=== PATIENT | female | born 1990 | race African-American/Black ===

== ENCOUNTER 2019-11-23 14:21 | Outpatient (CLI) | payer OTHER, SELFPAY ==
--- NOTE | ~2019-11-23 | US_ITS ---
EXAMINATION: US OB <= 14 weeks fetus DATE: 11/23/2019 15:29 INDICATION: First trimester dating. TECHNIQUE: Real-time pelvic transabdominal and transvaginal ultrasound was performed. COMPARISON: None. FINDINGS: The uterus measures 10.4 x 7.4 x 7.5 cm. There is an intrauterine gestational sac. There i s a 3.5 x 1.6 x 1 0.7 cm hypoechoic area adjacent to the gestational sac. A yolk sac is identified. F etal heart motion is identified measuring 163 beats per minute (bpm) by M-mode Doppler. 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 The left ovary is not visualized however no left adnexal abnormality is seen. The right ovary measure s 3.2 x 1.8 x 1.7 cm. There is normal vascular flow in the right ovary. There is no free fluid in the pelvis. IMPRESSION: 1. Live intrauterine with an estimated gestational age of 8 weeks and 5 day(s) (+/-) 5 day( s) and an estimated delivery date of 06/29/2020. 2. Small subchorionic hemorrhage. 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 IMPRESSION: 1. Live intrauterine with an estimated gestational age of 8 weeks and 5 day(s) (+/-) 5 day(s) and an estimated delivery date of 06/29/2020. 2. Small subchorionic hemorrhage.
== END 2019-11-23 14:22 | disposition home or self-care (01) ==
LOC: ANHIMG 14:24
PROVIDERS: Visit Provider Nurse Practitioner
DX: Z36.87 Encounter for antenatal screening for uncertain dates (principal); O26.859 Spotting complicating pregnancy, unspecified trimester; Z3A.08 8 weeks gestation of pregnancy
CPT/HCPCS: 76801

== ENCOUNTER 2019-12-05 15:32 | Outpatient (CLI) | payer OTHER, SELFPAY ==
--- NOTE | ~2019-12-05 | US_ITS ---
EXAMINATION: US OB <= 14 weeks fetus DATE: 12/05/2019 16:10 INDICATION: Subchorionic hematoma, first trimester TECHNIQUE: Real-time pelvic transabdominal and transvaginal ultrasound was performed. COMPARISON: 11/23/2019 FINDINGS: The uterus measures 15.1 x 7.4 x 8.9 cm. There is an intrauterine gestational sac. There i s a 1.8 x 0.7 x 0.4 cm hypoechoic area adjacent to the gestational sac which is decreased in size sin ce the comparison examination. A yolk sac is identified. heart motion is identified measuring 1 65 beats per minute (bpm) by M-mode Doppler. The crown rump length measures 3.8 cm , which betty elates with an estimated gestational age of 10 weeks and 5 day(s) (+/-) 7 day(s). The right ovary measures 2.9 x 1.5 x 1.4 cm. The left ovary measures 3.1 x 1.7 x 1.8 cm. There is nor mal vascular flow in the ovaries. There is no free fluid in the pelvis. IMPRESSION: 1. Live intrauterine with an estimated gestational age of 10 weeks and 5 day(s) (+/-) 7 day (s) and an estimated delivery date of 06/27/2020. 2. Small subchorionic hemorrhage with decrease in size. 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 IMPRESSION: 1. Live intrauterine with an estimated gestational age of 10 weeks an d 5 day(s) (+/-) 7 day(s) and an estimated delivery date of 06/27/2020. 2. Small subchorionic hemorrhage with decrease in size.
== END 2019-12-05 15:33 | disposition home or self-care (01) ==
PROVIDERS: Visit Provider Obstetrics & Gynecology Gynecology
DX: O36.8910 Maternal care for other specified fetal problems, first trimester, not applicable or unspecified (principal); Z3A.10 10 weeks gestation of pregnancy
CPT/HCPCS: 76801

== ENCOUNTER 2020-01-02 15:55 | Outpatient (CLI) | payer OTHER, SELFPAY ==
--- NOTE | ~2020-01-02 | US_ITS ---
EXAMINATION: US OB limited DATE: 01/02/2020 16:32 INDICATION: Subchorionic hematoma during first trimester of . TECHNIQUE: Real-time ultrasound of the pelvis was performed. The interpreting radiologist was not pre sent for the study. COMPARISON: 12/05/2019 FINDINGS: There is a single living fetus in variable presentation. The placenta is anterior. No evident subcho rionic hematoma. heart rate is 145 beats per minute (bpm). The amniotic fluid is subjectively n ormal. IMPRESSION: 1. Single living fetus in variable presentation with heart rate of 145 bpm. 2. Anterior placenta with no evident subchorionic hematoma. 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 IMPRESSION: 1. Single living fetus in variable presentation with heart rate of 145 b pm. 2. Anterior placenta with no evident subchorionic hematoma.
== END 2020-01-02 15:56 | disposition home or self-care (01) ==
PROVIDERS: Visit Provider Obstetrics & Gynecology Gynecology
DX: O36.8920 Maternal care for other specified fetal problems, second trimester, not applicable or unspecified (principal); Z3A.00 Weeks of gestation of pregnancy not specified
CPT/HCPCS: 76815

== ENCOUNTER 2020-01-31 14:39 | Outpatient (CLI) | payer OTHER, SELFPAY ==
--- NOTE | ~2020-01-31 | US_ITS ---
EXAMINATION: US OB /maternal detail DATE: 01/31/2020 15:48 INDICATION: Second trimester anatomic survey TECHNIQUE: Real-time ultrasound of the pelvis was performed. COMPARISON: None. FINDINGS: There is a single living fetus in breech presentation. The placenta is anterior and 6.1 cm from the i nternal cervical os. There is a 4.8 x 4.5 cm hypoechoic area of the placenta at the myometrium of unc lear origin. heart rate is 145 beats per minute (bpm). cardiac activity and moveme nt are noted. The amniotic fluid index is subjectively normal. The following anatomy was identified as normal: 4 chamber heart 3 vessel cord cord insertion kidneys urinary bladder stomach spine diaphragm ventricles cisterna magna cerebellum The following biometric data were obtained: Biparietal diameter (BPD): 4.4 cm; head circumference (HC): 16.4 cm; abdominal circumference (AC): 12 .4 cm; femur length (FL): 2.6 cm. The head circumference to abdominal circumference ratio is greater than two standard deviations above the mean. These measurements are otherwise concordant. Estimated weight is 225 g +/- 33 g, which correlates with the 17th percentile when 06/28/2020 i s used as estimated date of delivery. As single measurements, these parameters are each equal to the following estimated gestational ages w ith ranges of +/- 2 standard deviations: BPD: 19 weeks 3 days +/- 1 weeks 5 days. HC: 19 weeks 1 days +/- 1 weeks 3 days. AC: 18 weeks 0 days +/- 2 weeks 0 days. FL: 18 weeks 0 days +/- 1 weeks 3 days. estimated gestational age based solely on measurements from this exam is 18 weeks 5 days +/- 1 weeks 2 days. IMPRESSION: 1. Single living fetus in breech presentation. 2. Estimated weight is 225 g +/- 33 g, which correlates with the 17th percentile when 0 is used as estimated date of delivery. 3. Head circumference to abdominal circumference ratio greater than two standard deviations above the mean. 4. Hypoechoic area posterior to the placenta of unclear significance, possibly reflecting a contracti on however would recommend clinical follow-up and follow-up ultrasound. 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 IMPRESSION: 1. Single living fetus in breech presentation. 2. Estimated weight is 225 g +/- 33 g, which correlates with the 17th per centile when 06/28/2020 is used as estimated date of delivery. 3. Head circumference to abdominal circumference ratio greater than two standar d deviations above the mean. 4. Hypoechoic area posterior to the placenta of unclear significance, possibly reflecting a contraction however would recommend clinical follow-up and follow- up ultrasound.
== END 2020-01-31 14:40 | disposition home or self-care (01) ==
PROVIDERS: Visit Provider Obstetrics & Gynecology Gynecology
DX: Z36.9 Encounter for antenatal screening, unspecified (principal); Z3A.00 Weeks of gestation of pregnancy not specified
CPT/HCPCS: 76805

== ENCOUNTER 2020-04-25 11:24 | Outpatient (CLI) | payer OTHER, SELFPAY ==
--- NOTE | ~2020-04-25 | US_ITS ---
EXAMINATION: US OB follow up DATE: 04/25/2020 11:59 INDICATION: Size greater than dates during third trimester TECHNIQUE: Real-time ultrasound of the pelvis was performed. The interpreting radiologist was not pre sent for the study. COMPARISON: 01/31/2020 FINDINGS: There is a single living fetus in vertex presentation. The placenta is anterior and 4.2 cm from the internal cervical os. cardiac activity and movement are noted. heart rate is 137 beats per minute (bpm). The amniotic fluid index is 19 cm which is normal. The previously desc ribed hypoechoic area posterior to the placenta is not identified on the current examination. The following biometric data were obtained: Biparietal diameter (BPD): 8.1 cm; head circumference (HC): 29.8 cm; abdominal circumference (AC): 28 .4 cm; femur length (FL): 5.8 cm. These measurements are concordant. Estimated weight is 1873 g +/- 280 g, which correlates with the 75th percentile when 06/28/2020 is used as estimated date of delivery. As single measurements, these parameters are each equal to the following estimated gestational ages w ith ranges of +/- 2 standard deviations: BPD: 32 weeks 6 days ( 29 weeks 5 days - 35 weeks 6 days). HC: 33 weeks 0 days ( 30 weeks 0 days - 36 weeks 0 days). AC: 32 weeks 4 days ( 29 weeks 4 days - 35 weeks 3 days). FL: 30 weeks 3 days ( 27 weeks 3 days - 33 weeks 3 days). estimated gestational age based solely on measurements from this exam is 32 weeks 2 days +/- 2 weeks 2 days. IMPRESSION: 1. Single living fetus in vertex presentation. 2. Normal amniotic fluid index. 3. Estimated weight is 1873 g +/- 280 g, which correlates with the 75th percentile when 020 is used as estimated date of delivery. 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 IMPRESSION: 1. Single living fetus in vertex presentation. 2. Normal amniotic fluid index. 3. Estimated weight is 1873 g +/- 280 g, which correlates with the 75th p ercentile when 06/28/2020 is used as estimated date of delivery.
== END 2020-04-25 11:25 ==
PROVIDERS: Visit Provider Nurse Practitioner
DX: O36.63X0 Maternal care for excessive fetal growth, third trimester, not applicable or unspecified (principal); Z3A.00 Weeks of gestation of pregnancy not specified
CPT/HCPCS: 76816

== ENCOUNTER 2020-05-12 13:50 | Outpatient (CLI) | payer OTHER, SELFPAY ==
--- NOTE | ~2020-05-12 | US_ITS ---
EXAMINATION: US OB follow up DATE: 05/12/2020 14:14 INDICATION: Size greater than dates. Third trimester. TECHNIQUE: Real-time ultrasound of the pelvis was performed. COMPARISON: Ultrasound 04/25/2020, 11/23/2019 FINDINGS: There is a single living fetus in breech presentation. The placenta is anterior, at least 5.0 cm fro m the cervix. heart rate is 133 beats per minute (bpm). The amniotic fluid index is 12.4 cm, wh ich is normal. The following biometric data were obtained: Biparietal diameter (BPD): 8.7 cm; head circumference (HC): 33.0 cm; abdominal circumference (AC): 30 .7 cm; femur length (FL): 6.0 cm. These measurements are discordant with low FL/BPD and FL/AC. Estimated weight is 2345 g +/- 352 g, which correlates with 67th percentile when 06/28/20 is us ed as estimated date of delivery. As single measurements, these parameters are each equal to the following estimated gestational ages w ith ranges of +/- 2 standard deviations: BPD: 35 weeks 1 days (32 weeks 1 days - 38 weeks 2 days). HC: 37 weeks 4 days (34 weeks 6 days - 40 weeks 2 days). AC: 34 weeks 4 days (31 weeks 5 days - 37 weeks 4 days). FL: 31 weeks 3 days (28 weeks 3 days - 34 weeks 3 days). estimated gestational age based solely on measurements from this exam is 34 weeks 5 days +/- 2 weeks 3 days. IMPRESSION: 1. Single living fetus in breech presentation. 2. Estimated weight is 2345 g +/- 352 g, which correlates with 67th percentile when 06/28/20 i s used as estimated date of delivery. Note that the estimated date of delivery based on the first ult rasound from 11/23/2019 would be 06/29/2020. 3. Discordant biometrics with low FL/BPD and FL/AC ratios. 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 Single living fetus in breech presentation. 2. Estimated weight is 2345 g +/- 352 g, which correlates with 67th perc entile when 06/28/20 is used as estimated date of delivery. Note that the estim ated date of delivery based on the first ultrasound from 11/23/2019 would be . 3. Discordant biometrics with low FL/BPD and FL/AC ratios.
== END 2020-05-12 13:51 ==
PROVIDERS: Visit Provider Obstetrics & Gynecology
DX: O36.63X0 Maternal care for excessive fetal growth, third trimester, not applicable or unspecified (principal); Z3A.34 34 weeks gestation of pregnancy
CPT/HCPCS: 76816

== ENCOUNTER 2020-06-22 15:54 | Inpatient (IN) | payer OTHER, SELFPAY ==
[2020-06-22] VITALS (14 sets, daily range): BP systolic 89–140; BP diastolic 49–85; PULSE 87–121; TEMP 36.6–37; BMI 36.5
--- NOTE | 2020-06-22 15:54 | LDADM ---
This patient, Zakiya Paez, was admitted to Labor/Delivery/Recovery 108 on 06/22/20 at 15:54. Plans for labor, pain management and were discussed with patient. Patient/family oriented to hospital policies and general routines including ID bracelet, bed and alarms, visiting hours, pain management, procedures, bathroom and other care routines, personal items, smoking policy, room service/diet and guest tray routines, infant security routines, and visiting hours. Patient/Family are encouraged to report perceived risks to care and to ask questions if they do not understand what they are told or what they should do. See OBIX for further documentation.
[2020-06-22 16:26] LABS: Basophils Percent Auto 0.3 % (0.2-1.2); Eosinophils Percent Auto 0.4 % (0-4.4); Hematocrit 33.8 % (37.0-47.0); Hemoglobin 11.6 g/dL (12.0-15.0); Immature Granulocyte Absolute 0.04 K/mm3 (0.00-0.031); Immature Granulocyte Percent A 0.6 % (0-0.5); Lymphocytes Absolute Auto 1.35 K/mm3 (0.9-3.2); Lymphocytes Percent Auto 19.3 % (18.3-44.2); Mean Corpuscular HGB Conc 34.3 g/dl (32-36); Mean Corpuscular Hemoglobin 32.4 pg (26-34); Mean Corpuscular Volume 94.4 fl (80-100); Mean Platelet Volume 11.4 fl (7.4-10.4); Monocytes Absolute Auto 0.3 K/mm3 (0.1-0.6); Monocytes Percent Auto 4.4 % (2.6-8.5); Neutrophils Absolute Auto 5.2 K/mm3 (1.3-6.7); Nucleated Red Blood Cells Perc 0.3 % (0.0-0.2); Platelet Count Result 166 k/mm3 (150-375); Red Blood Count 3.58 M/mm3 (4.2-5.4); Red Cell Distribution Width 14.3 % (11.5-14.5)
[2020-06-22] MEDS: DINOPROSTONE 10 MG VAG INSERT VAGINAL (16:35)
--- NOTE | 2020-06-22 17:46 | WPDANESEPP ---
Anes - Eval Pre Procedure Procedure: Labor epidural Date/Time: 06/22/20 17:46 Surgeon: Braydon Preop Diagnosis: abd pain with contractions Pre Op Diagnosis: IOL Patient Data Age: 30 Gender: F Height: 5 ft 3 in Weight: 93.5 kg Last Vital Signs Temp 97.9 F 06/22/20 16:15 Pulse 103 H 06/22/20 17:45 BP 96/53 L 06/22/20 17:45 Allergies Allergy/AdvReac Type Severity Reaction Status Date / Time No Known Allergies Allergy Mild Verified 06/22/20 16:21 Home Medications Medication Instructions Recorded Confirmed Type PNV cmb#95-ferrous fumarate-FA 1 tablet PO DAILY 05/29/20 06/22/20 History [] aspirin 81 mg PO DAILY 05/29/20 06/22/20 History Laboratory Tests 06/22/20 06/22/20 16:18 16:18 WBC 7.0 K/mm3 K/mm3 (4.5-10.0) RBC 3.58 M/mm3 L M/mm3 (4.2-5.4) Hgb 11.6 g/dL L g/dL (12.0-15.0) Hct 33.8 % L % (37.0-47.0) MCV 94.4 fl fl (80-100) MCH 32.4 pg pg (26-34) MCHC 34.3 g/dl g/dl (32-36) RDW 14.3 % % (11.5-14.5) Plt Count 166 k/mm3 k/mm3 (150-375) MPV 11.4 fl H fl (7.4-10.4) Immature Gran % (Auto) 0.6 % H % (0-0.5) Neut % (Auto) 75.0 % H % (45.5-73.1) Lymph % (Auto) 19.3 % % (18.3-44.2) Hanson % (Auto) 4.4 % % (2.6-8.5) Eos % (Auto) 0.4 % % (0-4.4) Baso % (Auto) 0.3 % % (0.2-1.2) Lymph # (Auto) 1.35 K/mm3 K/mm3 (0.9-3.2) Hanson # (Auto) 0.3 K/mm3 K/mm3 (0.1-0.6) Eos # (Auto) 0.0 K/mm3 K/mm3 (0-0.3) Baso # (Auto) 0.0 K/mm3 K/mm3 (0.0-0.1) Abs Immat Gran (auto) 0.04 K/mm3 H K/mm3 (0.00-0.031) Absolute Neuts (auto) 5.2 K/mm3 K/mm3 (1.3-6.7) Absolute Nucleated RBC 0.0 K/mm3 K/mm3 (0.0-0.012) Nucleated RBC % 0.3 % H % (0.0-0.2) RPR Pending Patient hx anesthesia problems: none Family hx anesthesia problems: none PMFSH Past Medical History Medical History (Updated 06/22/20 @ 17:47 by Robert Gavin CRNA) Overweight or obesity and not yet delivered Family History Family History (Updated 05/29/20 @ 14:31 by Josephine Watts RN) Other No pertinent family history Social History Social History Smoking status: Never smoker Substance use: never Gender identity (if verbalized by the patient): Female Spiritual care concerns: No Exam Day of Procedure 06/22/20 17:46 Patient weight: overweight Neurological: alert and oriented
[2020-06-23] VITALS (107 sets, daily range): BP systolic 86–132; BP diastolic 39–86; PULSE 41–111; TEMP 36.6–37.6; O2SAT 80–99
[2020-06-23] MEDS: OXYTOCIN 30 UNITS/NS 500 ML 30 UNITS/500 ML BAG IV CONT (05:32)
[2020-06-23] MEDS: LACTATED RINGERS 1,000 ML 125 ML IV CONT ×3 (05:32→22:13)
[2020-06-23 12:07] LABS: Rapid Plasma Reagin Non-Reactive (NonReactive)
--- NOTE | 2020-06-23 13:06 | P.HP_ITS ---
Obstetrics - Admit Note Admission Note: Arom clear fluid record reviewed. No pertinent additions to the history and/or any subsequent changes in the physical findings that are not consistent with the expected course of the were found. Additions to the history and/or subsequent changes in the physical findings alonso hatch. None.
[2020-06-23] MEDS: ONDANSETRON INJ 4 MG/2 ML VIAL IV PUSH (20:41)
[2020-06-24] VITALS (79 sets, daily range): BP systolic 92–126; BP diastolic 36–81; PULSE 82–142; RESP 18; TEMP 36.3–37.6; O2SAT 95–100
[2020-06-24] MEDS: OXYTOCIN 30 UNITS/NS 500 ML 30 UNITS/500 ML BAG 32 UNITS IV CONT (06:17)
[2020-06-24] MEDS: AMPICILLIN 2 GM/NS 100 ML 2 GM/100 ML BAG IVPB (07:00)
[2020-06-24] MEDS: OXYTOCIN 30 UNITS/NS 500 ML 30 UNITS/500 ML BAG 125 UNITS IV CONT (08:54)
[2020-06-24] MEDS: WITCH HAZEL 40 PADS 1 PAD TOPICAL (10:56)
[2020-06-24] MEDS: BENZOCAINE 20% AER SPR (*SP) 56 GM CAN 1 SPRAY TOPICAL (10:56)
--- NOTE | 2020-06-24 11:05 | PC.NURSE ---
Patient transferred to post room # 288 via wheelchair. Support person present. Oriented to unit, room, information board, rooming in, admission packet and security measures. Patient verbalizes understanding.
[2020-06-24] MEDS: IBUPROFEN 600 MG TABLET PO (14:09)
--- NOTE | 2020-06-24 17:21 | PC.NURSE ---
I called anesthesia to verify when the patient had to be NPO before her surgery on 06/25 at 1530. Anesthesia states no food after 7am and clear liquids up to 4 hours before surgery. I discussed with patient and she verbalized understanding.
[2020-06-25] VITALS (12 sets, daily range): BP systolic 101–124; BP diastolic 52–80; PULSE 77–106; RESP 12–21; TEMP 36.2–36.9; O2SAT 95–100
[2020-06-25] MEDS: IBUPROFEN 600 MG TABLET PO ×3 (04:12→19:26)
[2020-06-25 05:35] LABS: Hematocrit 31.2 % (37.0-47.0); Hemoglobin 10.5 g/dL (12.0-15.0)
--- NOTE | 2020-06-25 07:09 | PC.NURSE ---
Patient NPO as of 7am this morning. She states she ate a light breakfast around 6am
--- NOTE | 2020-06-25 10:15 | PC.NURSE ---
Patient taken to pre-op per stretcher. SBAR sent on the chart along with consents.
--- NOTE | 2020-06-25 10:15 | PM.IMHP ---
H&P: HPI History of Present Illness Date/Time: 06/25/20 10:15 Cheif Complaint: desires sterilizaition Narrative: Zakiya Paez is a 30 year old female s/p desires permanent sterilization. Review of Systems Review of Systems: All systems reviewed & are unremarkable except as noted in HPI and below PMFSH Past Medical History Medical History Overweight or obesity and not yet delivered Family History Family History Other No pertinent family history Social History Social History Smoking status: Never smoker Substance use: never Gender identity (if verbalized by the patient): Female Spiritual care concerns: No Meds Home Medications and Allergies Home Medications Medication Instructions Recorded Confirmed Type PNV cmb#95-ferrous fumarate-FA 1 tablet PO DAILY 05/29/20 06/22/20 History [] aspirin 81 mg PO DAILY 05/29/20 06/22/20 History Allergies Allergy/AdvReac Type Severity Reaction Status Date / Time No Known Allergies Allergy Mild Verified 06/22/20 16:21 Vital Signs Vital Signs - 24 hr 06/24/20 10:30 06/24/20 11:05 06/24/20 19:30 Temperature 36.9 C 36.3 C L Pulse Rate 105 H 109 H 82 Respiratory Rate 18 18 Blood Pressure 114/56 L 103/53 L 113/68 Pulse Oximetry 95 97 Exam Resp: Effort & Inspection: normal respiratory effort GI: Other: Uterus at umbilicus : Bimanual exam- vagina & uterus: normal palpation, normal palpation and enlarged H&P: Results Labs Labs: Short CBC 06/25/20 Range/Units 04:08 Hgb 10.5 L (12.0-15.0) g/dL Hct 31.2 L (37.0-47.0) % Assessment and Plan Assessment and plan (1) Request for sterilization: Code(s): Z30.2 - Encounter for sterilization Status: Acute Assessment and Plan: Scheduled for a post tubal ligation risk and benefits reviewed with patient in detail.
--- NOTE | 2020-06-25 10:19 | WPDANESEPPF ---
Anes - Initial Pre Proc Eval Procedure: Operation Date: 06/25/20 15:30 Proposed Procedures p Post- Tubal Ligation - Pernell Bryson MD Date/Time: 06/25/20 10:19 Surgeon: Dariela Anderson MD Pre Op Diagnosis: IOL Patient Data Age: 30 Gender: F Height: 1.6 m Weight: 93.5 kg Last Vital Signs Temp 36.3 C L 06/24/20 19:30 Pulse 82 06/24/20 19:30 Resp 18 06/24/20 19:30 BP 113/68 06/24/20 19:30 Pulse Ox 97 06/24/20 19:30 Allergies Allergy/AdvReac Type Severity Reaction Status Date / Time No Known Allergies Allergy Mild Verified 06/22/20 16:21 Home Medications Medication Instructions Recorded Confirmed Type PNV cmb#95-ferrous fumarate-FA 1 tablet PO DAILY 05/29/20 06/22/20 History [] aspirin 81 mg PO DAILY 05/29/20 06/22/20 History Laboratory Tests 06/25/20 04:08 Hgb 10.5 g/dL L g/dL (12.0-15.0) Hct 31.2 % L % (37.0-47.0) Patient hx anesthesia problems: none Family hx anesthesia problems: none PMFSH Past Medical History Medical History (Updated 06/25/20 @ 10:20 by Pernell Bryson MD) Overweight or obesity and not yet delivered Request for sterilization Family History Family History Other No pertinent family history Social History Social History Smoking status: Never smoker Substance use: never Gender identity (if verbalized by the patient): Female Spiritual care concerns: No Anes - Eval Final PreProcedure Day of Procedure 06/25/20 10:19 Patient weight: obese Heart: regular rate and rhythm Lungs: clear to auscultation and normal air movement Airway: Mallampati scale class II Neurological: alert and oriented Last oral intake: 6 hours ASA classification: II Emergent: no Anesthetic plan: proceed Anesthesia type and monitoring: regional epidural and standard monitoring Informed Consent: The patient's anesthetic plan and its attendant risks and benefits were discussed with the patient/family/POA. Questions were solicited and answers provided to the satisfaction of the patient/family/POA.
--- NOTE | 2020-06-25 10:21 | WPDHPUPDATE1 ---
History and Physical Update Update Date/Time: 06/25/20 10:21 History and Physical has been reviewed, including an updated exam of the patient. There are NO changes in the patient's condition. Risks, benefits, and alternatives have been discussed and questions answered. Patient agrees to proceed with procedure.
[2020-06-25] MEDS: LACTATED RINGERS 1,000 ML 30 ML IV CONT (10:42)
--- NOTE | 2020-06-25 12:07 | PM.PROC ---
Procedure Note - Detailed Date of procedure: 06/25/20 Pre-op diagnosis: IOL desires permanent sterilization Post-op diagnosis: same Procedure performed: tubal ligation Description of procedure: the patient was taken the operating room with IV running she was prepped and draped in a normal sterile fashion. The umbilical fold was injected with 1% lidocaine. A horizontal incision was made in the umbilical fold. Down to the underlying layer fascia which was entered sharply with Lamb scissors. Retractors were placed uterus palpated grasped with Angel and the uterus was followed to the patient's left tube not too was transected and suture-ligated with 0 Vicryl suture. Same procedure was performed on the right to which was followed to the fimbriated a.m. grasped with Angel's transected and suture-ligated with 0 Vicryl suture. The fascia was then closed with 0 Vicryl suture and the skin was closed with 4 Vicryl suture patient tolerated the procedure well sponge lap and needle counts were correct x2. Anesthesia: local and epidural Surgeon: Pernell Bryson MD Estimated blood loss (mL): 10 Drains: No Packing: No Pathology: yes Complications: None Condition: stable Disposition: observation
--- NOTE | 2020-06-25 12:48 | PC.NURSE ---
1240 Returned from surgery via bed. condition stable.
[2020-06-25] MEDS: SIMETHICONE 80 MG TAB.CHEW PO (12:54)
[2020-06-25] MEDS: HYDROcodone/acetaminophen (*CRX) 5-325 MG TABLET 2 TAB PO ×2 (12:55→19:27)
[2020-06-26] MEDS: IBUPROFEN 600 MG TABLET PO (05:08)
[2020-06-26] MEDS: HYDROcodone/acetaminophen (*CRX) 5-325 MG TABLET 2 TAB PO (05:09)
[2020-06-26 08:15] VITALS: BP 99/62; PULSE 85; RESP 16; TEMP 36.8; O2SAT 98
[2020-06-27 12:14] VITALS: BP 124/70; PULSE 71; RESP 20; TEMP 36.6; O2SAT 98
--- NOTE | 2020-07-09 11:39 | P.PCNOB_ITS ---
OB - Delivery Note Procedure Delivery date: 06/24/20 Procedure: Procedures Operation Date: 06/25/20 15:30 Actual Procedures Side Surgeon p Post- Tubal Ligation Bilateral Pernell Bryson MD events: Labor Induction Intrapartal events: None Induction method: AROM, per pitocin protocol and per cervidil protocol Delivery monitor: external FHT and external uterine Route of delivery: Laceration Description: None Quantitative Blood Loss (ml): 150 Anesthesia type: Epidural Disposition: floor [place] Baby Date of : 06/24/20 Time of : 08:17 Weeks of gestation at delivery: 39 gender: Male Weight (pounds): 8 Weight (ounces): 0 presentation: vertex position: Left Occiput Anterior Placenta delivery description: Spontaneous cord vessel description: 3 Vessels score one minute: 7 score five minutes: 9
--- NOTE | 2020-07-09 12:34 | PM.OBDSVD ---
DS: Admitting Diagnosis Admitting Diagnosis Admitting Diagnosis: bilateral tubal ligation DS: Discharge Diagnosis Discharge Diagnosis (1) Request for sterilization: Code(s): Z30.2 - Encounter for sterilization Status: Acute (2) (normal spontaneous vaginal delivery): Code(s): O80 - Encounter for full-term uncomplicated delivery Status: Acute OB - DS: Summary OB Procedures : Ultrasound OB Procedures Intrapartum: Spontaneous Vag Delivery and Tubal ligation OB Procedures: : None Peripartum Data Procedures: Procedures Operation Date: 06/25/20 15:30 Actual Procedures Side Surgeon p Post- Tubal Ligation Bilateral Pernell Bryson MD Time Spent with Patient Time attestation: Total time spent providing and/or coordinating discharge services: Exam GI: Other: incision: c/d/i DS: Data Data Completed and Pending Completed studies during hospitalization: Pending at discharge 06/24/20 09:06 Surgical [PTH] Routine 06/25/20 11:24 Surgical [PTH] Routine Surgical [PTH] Routine Discharge Plan Discharge Attending physician on discharge: Pernell Bryson Consulting providers: Mac Bernal Discharging Clinician: Pernell Bryson Patient Disposition: Home, Self-Care Activity: may shower Diet: regular Discharge Instructions: Education: Mom and Baby Guide Given to: Mother Follow-Up: Call your delivering provider's office for an appointment to be seen in: 4 Weeks Mom and baby should come to the [facility] for the follow-up appointment. Appointment Date/Time: June 27, 2020 at 11:00 am What to expect at your follow-up visit: Blood Pressure Check Physical Assessment Call [phone] if you are unable to keep your appointment time. BREAST CARE: * Wear a snug supportive bra. * For engorgement discomfort: Breast Feeding: * Apply warm moist washcloths * Express milk as needed to relieve engorgement * Wear loose clothing Bottle Feeding: * May apply ice packs * For sore nipples: * Identify correct latch-on * Apply warm moist washcloths before and after nursing * Air dry nipples after nursing * May apply Lansinoh cream to nipples EPISIOTOMY/PERINEAL CARE: * Until bleeding stops, use your benigno bottle after urinating * Change your pad frequently throughout the day * You may take sitz baths several times a day (fill your bathtub with warm water and soak for 20 minutes.) Do NOT bathe in the water * No tub baths until seen by your physician - You may shower ACTIVITY: * Rest as much as possible. * Do not exercise or lift anything heavier than your baby (such as laundry or other children.) * Avoid stairs or driving as much as possible. * Do not put anything into the vagina. No douching, tampons, or sexual activity until seen by physician. NOTIFY PHYSICIAN IF YOU HAVE ANY QUESTIONS OR IF ANY OF THE FOLLOWING SYMPTOMS OCCUR: * If your episiotomy or incision becomes red, swollen, or more painful than what you have experienced in the hospital. * If your vaginal bleeding becomes foul smelling. * If your vaginal bleeding becomes more heavy than a period or if your bleeding changes from pink to bright red. However, you may pass an occasional walnut-sized clot once or twice for the first week . * If you experience a sharp, shooting pain in you calves. * If you discover a hard, reddened area on your breast or if you experience flu-like symptoms. DIET: * Eat regular, well-balanced meals. * Drink plenty of fluids daily. If , drink to thirst. Patient Instructions: Tubal Ligation (DC) Stand Alone Forms: General Discharge Information Follow-up/Referrals: Dariela Anderson MD [Physician] - Discharge Medications: New ibuprofen 600 mg Tablet 600 mg PO Q6H PRN (Reason: Crampin
== END 2020-06-26 10:35 | disposition home or self-care (01) | DRG 798 ==
LOC: ANHLDR 06-24 08:32 → ANHOB2 06-26 08:07 → ANHLDR 06-27 13:09
PROVIDERS: Admitting Provider Obstetrics & Gynecology; Visit Provider Obstetrics & Gynecology
PROC: 0UB70ZZ Excision of Bilateral Fallopian Tubes, Open Approach (ICD-10-PCS; CPT 58605; principal; 2020-06-25 15:30)
DX: O69.81X0 Labor and delivery complicated by cord around neck, without compression, not applicable or unspecified (principal); Z37.0 Single live birth; Z3A.39 39 weeks gestation of pregnancy; O42.92 Full-term premature rupture of membranes, unspecified as to length of time between rupture and onset of labor; O99.214 Obesity complicating childbirth; E66.9 Obesity, unspecified; Z30.2 Encounter for sterilization
CPT/HCPCS: 36415; 85014; 85018; 85025; 86592; 86850; 86900; 86901; 88302; 88307; A9270; J0290; J2405; J2590; J2795; J7120